=== PATIENT | male | born 1970 | race African-American/Black ===

== ENCOUNTER 2017-05-09 22:46 | Emergency (ER) | payer SELFPAY ==
[~2017-05-09] VITALS: Ht 177.8 cm; Wt 95.0 kg
[2017-05-09 23:30] VITALS: BP 148/68; PULSE 75; RESP 18; TEMP 98.6; O2SAT 100
== END 2017-05-10 02:17 | disposition left against medical advice (07) ==
LOC: NED 22:46
DX: Z03.89 Encounter for observation for other suspected diseases and conditions ruled out (principal)
CPT/HCPCS: 99281